=== PATIENT | female | born 1960 | race Caucasian/White ===

== ENCOUNTER 2023-12-14 23:55 | Emergency (ER) | payer BC ==
[~2023-12-14] VITALS: Ht 160 cm; Wt 84.1 kg
[2023-12-15 02:17] LABS: ALBUMIN 3.9 G/DL (3.4-5.0); ANION GAP 11 (8-16); BASOPHILS # (AUTO) 0.1 X10'3 (0-0.2); BASOPHILS % (AUTO) 0.4 % (0-1); BLOOD UREA NITROGEN 10 MG/DL (7-18); BUN/CREATININE RATIO 14.3 (10.0-20.0); CHLORIDE 108 MMOL/L (99-107); EOSINOPHILS # (AUTO) 0.1 X10'3 (0-0.9); EOSINOPHILS % (AUTO) 0.6 % (0-6); GLUCOSE 129 MG/DL (70-104); HEMATOCRIT 45.8 % (35.0-45.0); HEMOGLOBIN 15.5 g/dl (12.0-16.0); LYMPHOCYTES # (AUTO) 1.1 X10'3 (1.1-4.8); LYMPHOCYTES % (AUTO) 7.9 % (21-51); MEAN CORPUSCULAR HEMOGLOBIN 31.7 PG (27.0-31.0); MEAN CORPUSCULAR HGB CONC 33.9 g/dL (33.0-36.5); MEAN CORPUSCULAR VOLUME 93.5 FL (78-98); MONOCYTES # (AUTO) 0.5 X10'3 (0-0.9); MONOCYTES % (AUTO) 3.9 % (2-12); NEUTROPHILS # (AUTO) 12.4 X10'3 (1.8-7.7); NEUTROPHILS % (AUTO) 87.2 % (42-75); PLATELET COUNT 326 X10'3 (140-440); POTASSIUM 3.9 MMOL/L (3.5-5.1); RED CELL DISTRIBUTION WIDTH 14.2 % (11.5-14.5); SODIUM 145 MMOL/L (135-145); TOTAL CARBON DIOXIDE 25.9 MMOL/L (24-32); WHITE BLOOD COUNT 14.2 X10'3 (4.5-11.0); eCRCL 67 ML/MIN; eGFR 84 ML/MIN
[2023-12-15 02:21] LABS: APTT 27 SECONDS (22-32); INR 0.9 INR; PROTHROMBIN TIME 10.2 SECONDS (9.0-12.0)
[2023-12-15] MEDS: morphine 4 MG/ML inj SYRINge IV ONE ×2 (05:00→05:46)
[2023-12-15] MEDS: ondansetron/PF 4mg/2ml inj IV ONE ×2 (05:00→05:46)
[2023-12-15] MEDS ORDERED: propofol 10mg/ml 20ml vial IV ONE (05:10)
[2023-12-15] MEDS ORDERED: HYDR-3965 PO (05:24)
[2023-12-15] MEDS ORDERED: ONDA8TAB13 PO (05:25)
[2023-12-15] MEDS: ketorolac trometh. 30mg/ml inj. IV ONE (05:46)
[2023-12-15] MEDS: propofol 10mg/ml 20ml vial IV ONE (07:05)
[2023-12-15] MEDS: ketamine 50 mg/ml 10ml vial IV STA ×2 (08:30→11:26)
[2023-12-15] MEDS: morphine 2 MG/ML inj. syringe IV ONE (12:38)
[2023-12-15 12:53] VITALS: BP 142/101; PULSE 86; RESP 12; TEMP 96.2; O2SAT 3
== END 2023-12-15 12:58 | disposition home or self-care (01) ==
LOC: ER 23:55
DX: S82.852A Displaced trimalleolar fracture of left lower leg, initial encounter for closed fracture (principal); F17.200 Nicotine dependence, unspecified, uncomplicated; Z72.89 Other problems related to lifestyle; Z79.899 Other long term (current) drug therapy; W19.XXXA Unspecified fall, initial encounter; Y93.89 Activity, other specified; Y92.89 Other specified places as the place of occurrence of the external cause; Y99.8 Other external cause status
CPT/HCPCS: 27818; 36415; 71045; 73600; 73610; 80048; 85025; 85610; 85730; 86885; 86900; 86901; 93005; 94760; 96374; 96375; 96376; 99152; 99285; J1885; J2270; J2405; J3490; J7030; A4615; A4620; A6449